=== PATIENT | female | born 1970 | race Caucasian/White ===

== ENCOUNTER 2018-12-30 12:10 | Emergency (ER) | payer MEDICAID ==
[2018-12-30] MEDS ORDERED: Sodium Chloride 0.9% 1000 ML 1,000 ML ONE (12:36)
[2018-12-30] MEDS ORDERED: Lopressor 50 MG ONE (12:36)
[2018-12-30] MEDS: Sodium Chloride 0.9% 1000 ML 1,000 ML IV STA (12:38)
[2018-12-30] MEDS ORDERED: Lopressor 25MG Tab ONE (12:39)
[2018-12-30] MEDS: Lopressor 25MG Tab PO ONE (12:39)
[2018-12-30 12:55] LABS: BASOPHIL % 0.5 % (0.0-0.4); Basophil (Absolute #) 0.04 (0-0.4); Eosinophil % 1.7 % (0.00-5.0); Eosinophil (Absolute #) 0.14 (0-0.5); Granulocyte Absolute (ANC) 6.14 (1.4-6.9); Granulocytes % 73.2 % (36.0-66.0); Hematocrit 31.5 % (35-47); Hemoglobin 9.4 gm/dl (12.0-16.0); Lymphocyte (Absolute #) 1.64 (1.0-4.6); Lymphocytes % 19.5 % (24.0-44.0); Mean Cell Volume 74.5 fl (78-100); Mean Corpuscular Hemoglobin 22.2 pg (26-32); Mean Corpuscular Hgb Concent. 29.8 g/dl (32-36); Mean Platelet Volume 9.4 fl (6-9.5); Monocyte (Absolute #) 0.43 (0.0-1.3); Monocytes % 5.1 % (0.0-12.0); Platelet Count 367 K/mm3 (150-450); Red Blood Count 4.23 M/mm3 (4.1-5.4); Red Cell Distribution Width 17.7 % (11.5-14.0); White Blood Count 8.4 K/mm3 (4.0-10.5)
[2018-12-30 13:06] VITALS: O2SAT 97
[2018-12-30 13:06] LABS: ALBUMIN 3.6 g/dL (3.5-5.0); ALKALINE PHOSPHATASE 126 U/L (38-126); ANION GAP 10.5 MEQ/L (5-15); BLOOD UREA NITROGEN 14 mg/dL (7-17); CHLORIDE 102 mmol/L (98-107); Calcium 8.7 mg/dL (8.4-10.2); Carbon Dioxide 30 mmol/L (22-30); Creatinine 1 0.58 mg/dL (0.52-1.04); Glucose 325 mg/dL (74-106); Potassium 3.6 mmol/L (3.5-5.1); SGOT/AST 17 U/L (14-36); SGPT/ALT 18 U/L (0-35); SODIUM 139 mmol/L (137-145); Total Protein 6.6 g/dL (6.3-8.2)
[2018-12-30 13:14] LABS: Slide Review 1 YES
[2018-12-30] MEDS ORDERED: NovoLOG Insulin ONE (13:26)
[2018-12-30] MEDS: NovoLOG Insulin SQ ONE (13:27)
[2018-12-30] MEDS ORDERED: XYLOCAINE HCl Viscous ONE (16:05)
[2018-12-30] MEDS ORDERED: MAALOX ES 30 ML UNIT DOSE ONE (16:06)
[2018-12-30] MEDS: GI COCKTAIL 45 ML (Maalox/Lidocaine) PO ONE (16:08)
[2018-12-30 16:44] VITALS: BP 135/88; PULSE 92
--- NOTE | 2018-12-30 16:54 | ERPHSYRPT ---
- History of Present Illness Historian: patient Exam Limitations: no limitations Patient Subjective Stated Complaint: PT HERE FOR CHEST PAIN TO EPIGASTRIC PAIN THAT RADIATES TO RIGHT SIDE OF CHEST WITH SOME NAUSEA, STATES SHE FEELS LIKE HER HEART IS FLIPPING AROUND Triage Nursing Assessment: PT ALERT, WALKED IN, RESP LABORED AT WITH MOVEMENT, PT WEARS HOME O2 AT 3 LNC, SHE DENIES INCREASE OF SOB, NO VOMITING Physician History: Pt is a 48 y/o female that presented to the ED with complains of chest pain. Pt states, woke up at 10:30AM with chest pain, that is right sided, and radiates to the back. The pt states, does not take any medication for her cardiac history now. Her slot manager plans for a heart cath in February. No diaphoresis, no SOB or cough. No N/V/D. No F/C/S. Timing/Duration: today Activities at Onset: none Quality: pressure, stabbing Location: other (Right sided) Chest Pain Radiation: back Severity of Pain-Max: mild Severity of Pain-Current: mild Modifying Factors: Improves With: nothing Associated Symptoms: back pain Prior Chest Pain/Cardiac Workup: heart attack, stress test (nuclear stress in the past.) Nitro Today/Relief: no nitro taken today Aspirin Treatment Today: no aspirin today Allergies/Adverse Reactions: azithromycin [From Zithromax] Allergy (Verified 12/30/18 12:29) erythromycin base Allergy (Verified 12/30/18 12:29) Penicillins Allergy (Verified 12/30/18 12:29) prochlorperazine [From Compazine] Allergy (Verified 12/30/18 12:29) sulfamethoxazole [From Bactrim] Allergy (Verified 12/30/18 12:29) trimethoprim [From Bactrim] Allergy (Verified 12/30/18 12:29) vancomycin Allergy (Verified 12/30/18 12:29) Hx Influenza Vaccination/Date Given: No Hx Pneumococcal Vaccination/Date Given: Yes Immunizations Up to Date: Yes - Review of Systems Constitutional: No Fever, No Chills Eyes: No Symptoms Ears, Nose, & Throat: No Symptoms Respiratory: No Cough, No Dyspnea Cardiac: Chest Pain Abdominal/Gastrointestinal: No Abdominal Pain, No Nausea, No Vomiting, No Diarrhea Genitourinary Symptoms: No Dysuria Musculoskeletal: No Back Pain, No Neck Pain Neurological: No Dizziness, No Focal Weakness, No Sensory Changes - Past Medical History Pertinent Past Medical History: Yes Neurological History: Peripheral Neuropathy Cardiac History: Coronary Artery Disease, High Cholesterol, Hypertension, Myocardial Infarction (IA) Respiratory History: Asthma, Sleep Apnea Endocrine Medical History: Diabetes Type II Musculoskeletal History: Arthritis Other Medical History: DVT - Past Surgical History Past Surgical History: Yes Gastrointestinal: Appendectomy, Cholecystectomy Female Surgical History: Section Other Surgical History: BREAST REDUCTION, ELBOW - Social History Smoking Status: Never smoker Exposure to second hand smoke: Yes (OCC) Drug Use: none Patient Lives Alone: No - Female History Hx Last Menstrual Period: DEC 14 - Nursing Vital Signs Nursing Vital Signs: Initial Vital Signs Temperature 97.9 F 12/30/18 12:12 Pulse Rate 120 12/30/18 12:12 Respiratory Rate 24 12/30/18 12:12 Blood Pressure 138/82 12/30/18 12:12 O2 Sat by Pulse Oximetry 94 L 12/30/18 12:12 Pain Scale Pain Intensity 6 - Physical Exam General Appearance: mild distress Eye Exam: PERRL/EOMI, eyes nml inspection Ears, Nose, Throat Exam: normal ENT inspection, moist mucous membranes Neck Exam: normal inspection, non-tender, supple, full range of motion Respiratory Exam: normal breath sounds, lungs clear, No respiratory distress Cardiovascular Exam: regular rate/rhythm, normal heart sounds, tachycardia Gastrointestinal/Abdomen Exam: soft, No tenderness, No mass Back Exam: normal inspection, No CVA tenderness, No vertebral tenderness Extremity Exam: normal inspection, normal range of motion Neurologic Exam: alert, oriented x 3, cooperative, normal mood/affect, sensation nml, No motor deficits SpO2: 97 - Course Nursing assessment & vital signs reviewed: Yes EKG Interpreted by Me: RATE, Sinus Rhythm, NORMAL ST-T Ordered Tests: Active Orders 24 hr Category Date Time Status Licensed Direct Entry Midwife STAT Care 12/30/18 12:23 Active EKG-ER Only STAT Care 12/30/18 12:22 Active IV Insertion STAT Care 12/30/18 12:22 Active CHEST 2 VIEWS (PA AND LAT) Stat Exams 12/30/18 12:23 Taken CBC W DIFF Stat Lab 12/30/18 12:22 Completed CMP Stat Lab 12/30/18 12:22 Completed D-DIMER QUANTITATION Stat Lab 12/30/18 12:30 Completed HCG,QUALITATIVE URINE Stat Lab 12/30/18 13:24 Completed TROPONIN Q3H Lab 12/30/18 12:30 Completed TROPONIN Q3H Lab 12/30/18 15:20 Completed TROPONIN Q3H Lab 12/30/18 18:30 Ordered TROPONIN Q3H Lab 12/30/18 21:30 Ordered TROPONIN Q3H Lab 12/31/18 00:30 Ordered Medication Summary Discontinued Medications Generic Name Dose Route Start Last Admin Trade Name Freq PRN Reason Stop Dose Admin Al Hydrox/Mg Hydrox/Simethicone Confirm 12/30/18 16:06 Maalox Es 30 Ml Unit Dose Administered 12/30/18 16:07 Dose 30 ml .ROUTE .STK-MED ONE Sodium Chloride 1,000 mls @ 999 mls/hr 12/30/18 12:22 12/30/18 13:39 Sodium Chloride 0.9% 1000 Ml IV 12/30/18 13:22 Infused .Q1H1M STA Infusion Sodium Chloride Confirm 12/30/18 12:36 Sodium Chloride 0.9% 1000 Ml Administered 12/30/18 12:37 Dose 1,000 mls @ ud .ROUTE .STK-MED ONE Insulin Aspart 8 unit 12/30/18 13:16 12/30/18 13:27 Novolog Insulin SQ 12/30/18 13:17 8 unit STAT ONE Administration Insulin Aspart Confirm 12/30/18 13:26 Novolog Insulin Administered 12/30/18 13:27 Dose 8 unit .ROUTE .STK-MED ONE Lidocaine HCl Confirm 12/30/18 16:05 Xylocaine Hcl Viscous * Administered 12/30/18 16:06 Dose 15 ml .ROUTE .STK-MED ONE Magnesium Hydroxide 45 ml 12/30/18 16:00 12/30/18 16:08 Gi Cocktail 45 Ml (Maalox/Lidocaine) PO 12/30/18 16:01 45 ml STAT ONE Administration Metoprolol Tartrate 25 mg 12/30/18 12:22 12/30/18 12:39 Lopressor 25mg Tab PO 12/30/18 12:23 25 mg STAT ONE Administration Metoprolol Tartrate Confirm 12/30/18 12:36 Lopressor 50 Mg Administered 12/30/18 12:37 Dose 50 mg .ROUTE .STK-MED ONE Metoprolol Tartrate Confirm 12/30/18 12:39 Lopressor 25mg Tab Administered 12/30/18 12:40 Dose 25 mg .ROUTE .STK-MED ONE Lab/Rad Data: Laboratory Result Diagrams 12/30/18 12:22 12/30/18 12:22 Laboratory Results 12/30/18 12/30/18 12/30/18 Range/Units 15:20 13:24 12:30 WBC (4.0-10.5) K/mm3 RBC (4.1-5.4) M/mm3 Hgb (12.0-16.0) gm/dl Hct (35-47) % MCV (78-100) fl MCH (26-32) pg MCHC (32-36) g/dl RDW (11.5-14.0) % Plt Count (150-450) K/mm3 MPV (6-9.5) fl Gran % (36.0-66.0) % Eos # (Auto) (0-0.5) Absolute Lymphs (auto) (1.0-4.6) Absolute Monos (auto) (0.0-1.3) Lymphocytes % (24.0-44.0) % Monocytes % (0.0-12.0) % Eosinophils % (0.00-5.0) % Basophils % (0.0-0.4) % Absolute Granulocytes (1.4-6.9) Basophils # (0-0.4) D-Dimer 269 (215-500) ng/mL Sodium (137-145) mmol/L Potassium (3.5-5.1) mmol/L Chloride (98-107) mmol/L Carbon Dioxide (22-30) mmol/L Anion Gap (5-15) MEQ/L BUN (7-17) mg/dL Creatinine (0.52-1.04) mg/dL Estimated GFR ML/MIN Glucose (74-106) mg/dL Calcium (8.4-10.2) mg/dL Total Bilirubin (0.2-1.3) mg/dL AST (14-36) U/L ALT (0-35) U/L Alkaline Phosphatase (38-126) U/L Troponin I < 0.012 (0.000-0.034) ng/mL Serum Total Protein (6.3-8.2) g/dL Albumin (3.5-5.0) g/dL Urine HCG, Qual NEGATIVE (Negative) Slides for Path Review 12/30/18 12/30/18 12/30/18 Range/Units 12:30 12:22 12:22 WBC 8.4 (4.0-10.5) K/mm3 RBC 4.23 (4.1-5.4) M/mm3 Hgb 9.4 L (12.0-16.0) gm/dl Hct 31.5 L (35-47) % MCV 74.5 L (78-100) fl MCH 22.2 L (26-32) pg MCHC 29.8 L (32-36) g/dl RDW 17.7 H (11.5-14.0) % Plt Count 367 (150-450) K/mm3 MPV 9.4 (6-9.5) fl Gran % 73.2 H (36.0-66.0) % Eos # (Auto) 0.14 (0-0.5) Absolute Lymphs (auto) 1.64 (1.0-4.6) Absolute Monos (auto) 0.43 (0.0-1.3) Lymphocytes % 19.5 L (24.0-44.0) % Monocytes % 5.1 (0.0-12.0) % Eosinophils % 1.7 (0.00-5.0) % Basophils % 0.5 (0.0-0.4) % Absolute Granulocytes 6.14 (1.4-6.9) Basophils # 0.04 (0-0.4) D-Dimer (215-500) ng/mL Sodium 139 (137-145) mmol/L Potassium 3.6 (3.5-5.1) mmol/L Chloride 102 (98-107) mmol/L Carbon Dioxide 30 (22-30) mmol/L Anion Gap 10.5 (5-15) MEQ/L BUN 14 (7-17) mg/dL Creatinine 0.58 (0.52-1.04) mg/dL Estimated GFR > 60.0 ML/MIN Glucose 325 H (74-106) mg/dL Calcium 8.7 (8.4-10.2) mg/dL Total Bilirubin 0.20 (0.2-1.3) mg/dL AST 17 (14-36) U/L ALT 18 (0-35) U/L Alkaline Phosphatase 126 (38-126) U/L Troponin I < 0.012 (0.000-0.034) ng/mL Serum Total Protein 6.6 (6.3-8.2) g/dL Albumin 3.6 (3.5-5.0) g/dL Urine HCG, Qual (Negative) Slides for Path Review YES - Progress Progress: improved Air Movement: good Progress Note: 12/30/18 16:58 Pt complained of chest pain. EKG was normal. She was tachycardic on presentation and D dimer was normal. Metoprolol, controlled HR and BP. Two troponins were negative, as well as CMP. Pt is somewhat anemic and should have work up done by PCP. Pt's elevated BG was treated in the ER with Humalog 8iu SQ. Repeat BG is in the 200s. Pt was advised to f/u with her cardiologistto see if cardiac cath or stress should be done earlier, secondary to pt's chest pain. GI cocktail was given with no improvement. Blood Culture(s) Obtained: No Antibiotics given: No Will see patient in: office Counseled pt/family regarding: lab results, need for follow-up, rad results - Departure Time of Disposition: 17:01 Departure Disposition: Home Clinical Impression: Chest pain Condition: Stable Critical Care Time: No Referrals: EVENS MARY MD [Primary Care Provider] - Additional Instructions: Pt is aware that all negative work up, r/o cardiac event at this point. She does need to f/u with Cardiology as she might need cardiac stress test or a cath , to see if any treatment should be given. Pt understands all the instructions , and will call her slot manager tomorrow. F/U with PCP next week.
--- NOTE | 2018-12-30 21:51 | XRAY ---
Indication: Chest pain. Comparison: None PA/lateral chest demonstrates minimal left base linear opacities, atelectasis versus scarring. Pneumonia not completely excluded in the right clinical setting. Remaining heart and right lung normal. Bony thorax intact with moderate dextrorotoscoliosis.
== END 2018-12-30 17:18 | disposition home or self-care (01) ==
LOC: ED 12:10
DX: R07.9 Chest pain, unspecified (principal); R10.13 Epigastric pain; I10 Essential (primary) hypertension; I25.10 Atherosclerotic heart disease of native coronary artery without angina pectoris; E11.9 Type 2 diabetes mellitus without complications; G47.30 Sleep apnea, unspecified; M19.90 Unspecified osteoarthritis, unspecified site
CPT/HCPCS: 36000; 36415; 71046; 80053; 82962; 84484; 84703; 85025; 85379; 93005; 93041; 96372; 99284; A9270-GY